=== PATIENT | female | born 1995 | race African-American/Black ===

== ENCOUNTER 2016-10-22 11:15 | Emergency (ER) | payer OTHER ==
[~2016-10-22] VITALS: Ht 160 cm; Wt 61.2 kg
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
== END 2016-10-22 12:40 | disposition home or self-care (01) ==
LOC: CFTX 11:15 → CED 11:15 → CFTX 12:28
DX: O9A.211 Injury, poisoning and certain other consequences of external causes complicating pregnancy, first trimester (principal); S13.4XXA Sprain of ligaments of cervical spine, initial encounter; S23.3XXA Sprain of ligaments of thoracic spine, initial encounter; S00.83XA Contusion of other part of head, initial encounter; V49.40XA Driver injured in collision with unspecified motor vehicles in traffic accident, initial encounter; Y93.89 Activity, other specified; Y92.410 Unspecified street and highway as the place of occurrence of the external cause
CPT/HCPCS: 70150; 72040; 72072; 84703; 99284